=== PATIENT | female | born 1955 | race Caucasian/White ===

== ENCOUNTER 2024-02-26 14:39 | Emergency (ER) | payer MEDICARE, OTHER, SELFPAY ==
[2024-02-26 14:43] VITALS: BP 127/90
[2024-02-26 14:59] LABS: % Basophils 0.7 % (0-2); % Eosinophils 1.3 % (0-6); % Immature Granulocytes 0.4 % (0-0.5); % Lymphocytes 22.9 % (20.5-51.1); % Monocytes 8.5 % (1.7-9.3); % Neutrophils 66.2 % (42.2-75.2); Absolute Basophils 0.1 10^3/uL (0-0.2); Absolute Eosinophils 0.1 10^3/uL (0-0.7); Absolute Lymphocytes 1.9 10^3/uL (1.2-3.4); Absolute Monocytes 0.7 10^3/uL (0.1-0.6); Absolute Neutrophils 5.5 10^3/uL (1.4-6.5); Hemoglobin 13.8 g/dL (12.0-16.0); Mean Corp Hgb Conc. 33.7 g/dL (33.0-37.0); Mean Corpuscular Hgb 31.2 pg (27.0-31.0); Mean Corpuscular Volume 92.6 fL (81.0-99.0); Mean Platelet Volume 9.4 fL (7.4-10.4); Nucleated Red Blood Cells % 0 %; Platelet Count 241 10^3/uL (130-400); Red Blood Cell Count 4.43 10^6/uL (4.20-5.40); Red Cell Dist. Width 12.6 % (11.5-14.5); White Blood Cell Count 8.3 10^3/uL (4.8-10.8)
[2024-02-26 15:12] LABS: ALT (SGPT) 24 U/L (0-35); AST (SGOT) 27 U/L (14-36); Albumin 4.6 g/dl (3.5-5.0); Alkaline Phosphatase 70 U/L (38-126); Blood Urea Nitrogen 23 mg/dl (7-17); Calcium 9.9 mg/dl (8.4-10.2); Carbon Dioxide 28 mmol/L (22-30); Chloride 105 mmol/L (98-107); Glucose 100 mg/dl (70-99); Sodium 139 mmol/L (135-145); Total Bilirubin 0.4 mg/dl (0.2-1.3); eGFR > 60.00
[2024-02-26 15:24] LABS: Troponin I < 0.012 ng/ml
[2024-02-26 16:56] VITALS: BP 136/66
[2024-02-26 17:00] VITALS: BP 143/65
[2024-02-26 17:26] LABS: Troponin I < 0.012 ng/ml
--- NOTE | 2024-02-26 17:36 | ED.GENMED ---
History of Present Illness
General
Chief Complaint: Chest Pain
Time Seen by Provider: 02/26/24 15:33
Travel History
Have you had any contact with someone who has COVID-19?: No
Do you have any symptoms of coronavirus? Fever > 100 degrees, chills, cough, shortness of breath, sore throat, loss of taste or smell, muscle aches, or headache?: No
History of Present Illness
History of Present Illness:
68-year-old female presents to the emergency department for evaluation of chest heaviness, nausea, and bilateral arm tingling beginning at approximately 10 AM today. She does endorse that she has been dealing with significant life stressors
recently and feels as though this was driving her symptoms. Denies symptoms at present. Denies any fevers or chills. Denies any nausea, vomiting, or diarrhea
Past History
Past History
ED Past Medical History: None
ED Past Surgical History: Tonsilectomy
Social History
Tobacco: Non-smoker
Employment: Employed (RN)
Review of Systems
Review of Systems
Allergies reviewed?: Yes
All Other Systems: ROS reviewed and negative except as documented in HPI and ROS
Phy Exam
Physical Exam
Physical Exam:
GEN: Well appearing, NAD, WDWN
HEENT: Oral mucosa moist, no scleral icterus
Cardiac: Regular rate and rhythm, no murmur
Lung: No respiratory distress, no tachypnea, lungs CTAB
MSK: No gross deformity or injuries
Skin: Good color, no pallor or jaundice, no rashes
Neuro: AO x3, moves all extremities freely
Psych: Calm, cooperative
Scores
Heart Score for Chest Pain Patients
STEMI patient?: No
History: Slightly or Non-Suspicious
ECG: Normal
Age: >/= 65 years
Risk Factors: No Risk Factors
Troponin: </= Normal Limit
Heart Score for Chest Pain Patients: 2
Heart Score Risk: 2.5% MACE over next 6 weeks
Course
Orders/Labs/Results
Orders:
Orders
02/26/24 14:40
EKG [Electrocardiogram (*1)] Urgent
Reason for Study: Chest Pain
EKG- Treatment ONCE
02/26/24 14:49
CMP [Comprehensive Metabolic Panel] Urgent
Complete Blood Count/With Diff Urgent
Troponin I Urgent
02/26/24 15:54
CR Chest - 2 Views Urgent
Comment:
Reason For Exam: chest pain
02/26/24 16:55
Troponin I Routine
Abnormal Lab Results
02/26/24
14:49
MCH 31.2 H pg
(27.0-31.0)
Absolute Monos (auto) 0.7 H 10^3/uL
(0.1-0.6)
BUN 23 H mg/dl
(7-17)
Glucose 100 H mg/dl
(70-99)
02/26/24 14:49
02/26/24 14:49
Vital Signs
Initial and Last Documented VS:
Initial Vital Signs
Temp Pulse Resp BP Pulse Ox
98.6 F 80 18 127/90 98
02/26/24 14:43 02/26/24 14:43 02/26/24 14:43 02/26/24 14:43 02/26/24 14:43
Last Documented Vital Signs
Temp Pulse Resp BP Pulse Ox
98.6 F 67 14 143/65 100
02/26/24 14:43 02/26/24 17:30 02/26/24 17:30 02/26/24 17:00 02/26/24 17:45
MDM/Problems Addressed
MDM/Problems Addressed:
Patient's symptoms are likely psychosomatic and driven by anxiety, she has no significant cardiovascular risk factors and has an unremarkable ischemic workup with negative troponin and normal EKGs. This is not exertional chest pain thus do not feel
she requires close cardiology follow-up
Comment
Comment:
EKG independently interpreted by me shows normal sinus rhythm at a rate of [address] changes concerning for ischemia, QTc of 442, comparable to prior EKG tracings
*Critical Care Note
Total Time (30-74mins, 75-104mins- exclusive of procedures): Not Applicable
ED Attending Note
-
Portions of this chart may have been created with voice recognition software.� Occasional wrong word or��sound alike� substitutions may have occurred due to the inherent limitations of voice recognition software.
Discharge Plan
Departure
Patient Disposition: Home (Routine Discharge)
Date of Disposition: 02/26/24
Time of Disposition: 17:36
Patient with high blood pressure during this ER visit?: No
Discharge Problem:
Atypical chest pain
Instructions: Chest Pain That Is Not Caused by the Heart (DC)
Prescriptions:
No Action
biotin [Appearex] 2,500 MCG tablet
5,000 mcg PO DAILY
Referrals:
Anand Sun MD [Family Provider] -
Interventions
Interventions:
*Risk Screen - Suicide Last Done: 02/26/24 15:24
*General Assessment Last Done: 02/26/24 14:43
*Neglect/Abuse Screening Last Done: 02/26/24 15:24
ED- Fall Risk Assessment Last Done: 02/26/24 15:24
*ED COVID-19 Vaccine History Last Done: 02/26/24 14:43
*Nursing Disposition Last Done: 02/26/24 17:49
ED- Cardiac Assessment Last Done: 02/26/24 15:22
Discharge Date and Time
Discharge Date/Time: 02/26/24 17:49
Print Language: LAO
== END 2024-02-26 17:49 | disposition home or self-care (01) ==
LOC: EMR 14:39
PROVIDERS: Physician Assistant; Student in an Organized Health Care Education/Training Program; EMERGENCY PHYSICIAN Emergency Medicine; FAMILY PHYSICIAN Family Medicine
DX: R07.89 Other chest pain (principal); R11.0 Nausea; R20.2 Paresthesia of skin; Z88.1 Allergy status to other antibiotic agents; Z88.0 Allergy status to penicillin; Z88.7 Allergy status to serum and vaccine
CPT/HCPCS: 99283; 71046; 80053; 84484; 85025; 93005

== ENCOUNTER 2025-07-19 17:32 | Emergency (ER) | payer MEDICARE, OTHER, SELFPAY ==
[2025-07-19 17:41] VITALS: BP 140/73
[2025-07-19 17:53] LABS: Hematocrit 40.9 % (37.0-47.0); Hemoglobin 13.5 g/dL (12.0-16.0); Mean Corp Hgb Conc. 33.0 g/dL (33.0-37.0); Mean Corpuscular Volume 91.5 fL (81.0-99.0); Nucleated Red Blood Cells % 0 %; Platelet Count 283 10^3/uL (130-400); Red Cell Dist. Width 12.6 % (11.5-14.5)
[2025-07-19 18:15] LABS: ALT (SGPT) 23 U/L (0-35); AST (SGOT) 22 U/L (14-36); Albumin 4.5 g/dl (3.5-5.0); Alkaline Phosphatase 66 U/L (38-126); Blood Urea Nitrogen 17 mg/dl (7-17); Calcium 9.9 mg/dl (8.4-10.2); Carbon Dioxide 26 mmol/L (22-30); Chloride 108 mmol/L (98-107); Glucose 104 mg/dl (70-99); Potassium 3.8 mmol/L (3.5-5.1); Sodium 139 mmol/L (135-145); Total Protein 6.7 g/dl (6.3-8.2); eGFR > 60.00
[2025-07-19 18:22] LABS: Troponin I < 0.012 ng/ml
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
[2025-07-19 21:36] VITALS: BMI 21.1
[2025-07-19 21:42] VITALS: BP 156/80
[2025-07-19 22:00] VITALS: BP 157/68
[2025-07-19 22:19] LABS: Troponin I < 0.012 ng/ml
[2025-07-19 22:40] VITALS: BP 113/93
[2025-07-19] MEDS: VALIUM 2 MG PO (22:47)
== END 2025-07-19 22:49 | disposition home or self-care (01) ==
LOC: EMR 17:32
PROVIDERS: Emergency Medicine; EMERGENCY PHYSICIAN Student in an Organized Health Care Education/Training Program; FAMILY PHYSICIAN Family Medicine
DX: R07.89 Other chest pain (principal); F41.9 Anxiety disorder, unspecified; R03.0 Elevated blood-pressure reading, without diagnosis of hypertension; F32.A Depression, unspecified; G47.00 Insomnia, unspecified; Z63.79 Other stressful life events affecting family and household
CPT/HCPCS: 99284; 80053; 84484; 85025; 93005